=== PATIENT | female | born 1990 | race Caucasian/White ===

== ENCOUNTER 2016-08-13 05:08 | Emergency (ER) | payer OTHER ==
[2016-08-13 05:29] VITALS: BMI 23.8
--- NOTE | 2016-08-13 05:53 | PDOC ---
[id number] SORE THROAT, HEADACHE Time Seen by Provider: 08/13/16 05:26 History Source: Patient Exam Limitations: No Limitations - History of Present Illness Initial Comments: 08/13/16 05:52 26yo Female patient presents to ED c/o sweating, chills, coughing, subjective fever, h/a, generalized malaise x 2 days. LNMP: 7 months ago (IUD). Pmhx: Fibromyalgia. Denies any other complaints at this time. Timing/Duration: other (2 days) Severity: moderate Modifying Factors: improves with: rest Associated Symptoms: reports: headaches. denies: chest pain, cough, diaphoresis , fever/chills, loss of appetite, nausea/vomiting, rash, seizure, shortness of breath, weakness Past History - Travel Traveled outside of the country in the last 30 days: No Close contact w/someone who was outside of country & ill: No - Past Medical History Allergies/Adverse Reactions: Allergies Allergy/AdvReac Type Severity Reaction Status Date / Time [place] And Derivatives Allergy Verified 08/13/16 05:29 No Known Drug Allergies Allergy Verified 08/13/16 06:27 Home Medications: Ambulatory Orders Oseltamivir Phosphate [Tamiflu] 75 mg PO BID #10 capsule 08/13/16 Amoxicillin - [Amoxicillin 500mg Capsule -] 1,000 mg PO DAILY #20 capsule Disorders: Yes (ovarian cysts) Kidney Stones: Yes Other medical history: fibromyalgia - Psycho/Social/Smoking Cessation Hx Anxiety: No Suicidal Ideation: No Smoking Status: Yes Smoking History: Current every day smoker Number of Cigarettes Smoked Daily: 20 Information on smoking cessation initiated: No 'Breaking Loose' booklet given: 03/19/15 Hx Alcohol Use: No Drug/Substance Use Hx: No Substance Use Type: None Review of Systems - Review of Systems Able to Perform ROS?: Yes Is the patient limited [place]ian proficient: No Constitutional: Yes: Chills, Fever (Subjective), Malaise. No: Night Sweats Respiratory: No: Cough, Orthopnea, Shortness of Breath, Stridor Cardiac (ROS): No: Chest Pain, Palpitations, Syncope, Chest Tightness ABD/GI: Yes: Other (Abd pain to RLQ/Epigastric region). No: Constipated, Diarrhea, Nausea, Poor Appetite, Poor Fluid Intake, Vomiting : No: Burning, Dysuria, Discharge, Frequency, Flank Pain, Pain, Urgency Musculoskeletal: Yes: Back Pain. No: Muscle Weakness Integumentary: No: Bruising, Erythema, Rash Neurological: Yes: Headache. No: Numbness, Paresthesia, Seizure, Tingling, Tremors, Weakness, Unsteady Gait, Ataxia *Physical Exam - Vital Signs Last Vital Signs Temp Pulse Resp BP Pulse Ox 98.9 F 106 H 18 102/72 100 08/13/16 05:28 08/13/16 05:28 08/13/16 05:28 08/13/16 05:08/13/16 05:28 - Physical Exam General Appearance: Yes: Nourished, Appropriately Dressed. No: Apparent Distress, Mild Distress, Moderate Distress, Severe Distress HEENT: positive: EOMI, LILA, Normal ENT Inspection, Normal Voice, Symmetrical, Pharynx Normal. negative: Tonsillar Exudate, Nasal Congestion, Rhinorrhea, Sinus Tenderness Neck: positive: Trachea midline, Supple. negative: Decreased range of motion, Stridor, Lymphadenopathy (R), Lymphadenopathy (L) Respiratory/Chest: positive: Lungs Clear, Normal Breath Sounds. negative: Respiratory Distress, Accessory Muscle Use, Labored Respiration, Rapid RR, Decreased Breath Sounds, Stridor, Wheezing Cardiovascular: positive: Regular Rhythm, Regular Rate Gastrointestinal/Abdominal: positive: Normal Bowel Sounds, Soft. negative: Increased Bowel Sounds, Guarding, Rebound Musculoskeletal: positive: Normal Inspection. negative: CVA Tenderness Extremity: positive: Normal Capillary Refill, Normal Inspection, Normal Range of Motion, Tender, Pelvis Stable Integumentary: positive: Normal Color, Dry, Warm Neurologic: positive: outreach associate II-XII NML intact, Fully Oriented, Alert, Normal Mood/ Affect, Motor Strength 5/5 ED Treatment Course - RADIOLOGY Radiology Studies Ordered: Category Date Time Status CHEST PA & LAT [RAD] Stat Radiology 08/13/16 05:49 Ordered *DC/Admit/Observation/Transfer Diagnosis at time of Disposition: Influenza - Discharge Dispostion Disposition: HOME Condition at time of disposition: Stable Admit: No - Prescriptions Prescriptions: Amoxicillin - [Amoxicillin 500mg Capsule -] 1,000 mg PO DAILY #20 capsule Oseltamivir Phosphate [Tamiflu] 75 mg PO BID #10 capsule - Referrals Referrals: Ortega Llanos [Primary Care Provider] - - Patient Instructions Printed Discharge Instructions: Influenza Additional Instructions: Take medication as directed Print Language: MOHAWK
--- NOTE | 2016-08-13 07:22 | PDOC ---
History of Present Illness - General Chief Complaint: Sore Throat Stated Complaint: SORE THROAT, HEADACHE Time Seen by Provider: 08/13/16 05:26 History Source: Patient - History of Present Illness Timing/Duration: other Associated Symptoms: reports: cough, fever/chills, malaise Past History - Past Medical History Allergies/Adverse Reactions: Allergies Allergy/AdvReac Type Severity Reaction Status Date / Time [place] And Derivatives Allergy Verified 08/13/16 05:29 No Known Drug Allergies Allergy Verified 08/13/16 06:27 Home Medications: Ambulatory Orders Oseltamivir Phosphate [Tamiflu] 75 mg PO BID #10 capsule 08/13/16 Disorders: Yes (ovarian cysts) Kidney Stones: Yes Other medical history: fibromyalgia - Psycho/Social/Smoking Cessation Hx Anxiety: No Suicidal Ideation: No Smoking Status: Yes Smoking History: Current every day smoker Number of Cigarettes Smoked Daily: 20 Information on smoking cessation initiated: No 'Breaking Loose' booklet given: 03/19/15 Hx Alcohol Use: No Drug/Substance Use Hx: No Substance Use Type: None Review of Systems - Review of Systems Is the patient limited Armenian proficient: No *Physical Exam - Vital Signs Last Vital Signs Temp Pulse Resp BP Pulse Ox 98.9 F 106 H 18 102/72 100 08/13/16 05:28 08/13/16 05:28 08/13/16 05:28 08/13/16 05:28 08/13/16 05:28 ED Treatment Course - ADDITIONAL ORDERS Additional order review: Laboratory Results 08/13/16 06:15 Urine HCG, Qual Negative 08/13/16 06:00 Influenza Types A,B Antigen (ZURI) - Final Nasopharyngeal Swab - Final 08/13/16 06:15 Group A Strep Rapid Antigen - Final Throat Medical Decision Making - Medical Decision Making 08/13/16 07:20 26-year-old female, no significant history, here with viral syndrome. Tested positive for influenza. Negative strep. Pending x-ray and then plan for discharge with Tamiflu as per prior team 08/13/16 07:44 XR neg. Pt stable for discharge at this time *DC/Admit/Observation/Transfer Diagnosis at time of Disposition: Influenza - Discharge Dispostion Disposition: HOME Condition at time of disposition: Stable - Prescriptions Prescriptions: Oseltamivir Phosphate [Tamiflu] 75 mg PO BID #10 capsule - Referrals Referrals: Ortega Llanos [Primary Care Provider] - - Patient Instructions Printed Discharge Instructions: Influenza Additional Instructions: Take medication as directed
[2016-08-13 07:52] LABS: URINE APPEARANCE CLEAR; URINE BILIRUBIN NEGATIVE (NEGATIVE); URINE BLOOD NEGATIVE (NEGATIVE); URINE COLOR LTYELLOW; URINE GLUCOSE (UA) NEGATIVE (NEGATIVE); URINE KETONE 2+ (NEGATIVE); URINE LEUK ESTERASE NEGATIVE (NEGATIVE); URINE NITRITE NEGATIVE (NEGATIVE); URINE PROTEIN NEGATIVE (NEGATIVE); URINE UROBILINOGEN NEGATIVE E.U./dl (0.2-1.0)
[2016-08-13 08:52] VITALS: BP 110/82; PULSE 92; TEMP 99
--- NOTE | 2016-08-15 12:25 | PDOC ---
Patient Follow-up (Call Back) - Post ED Follow - Up Chief Complaint: Respiratory Condition at time of discharge: Stable Disposition at time of original discharge: HOME Reason for Call Back: Abnwl. Microbiology (throat culture positive for strep A) - Disposition Rx Needed: Yes Additional Instructions/Notes: spoke with patient and will call in prescription for amoxicillin to [facility].
== END 2016-08-13 08:30 | disposition home or self-care (01) ==
LOC: JER 05:08
DX: J09.X2 Influenza due to identified novel influenza A virus with other respiratory manifestations (principal); F17.210 Nicotine dependence, cigarettes, uncomplicated
CPT/HCPCS: 71020-TC; 81003; 84703; 87070; 87077; 87430; 87804; 99282-25

== ENCOUNTER 2017-06-29 09:19 | Emergency (ER) | payer OTHER ==
[2017-06-29 09:33] VITALS: BP 133/83; PULSE 114; TEMP 98; BMI 23.8
[2017-06-29] MEDS ORDERED: KETOROLAC TROMETHAMINE 60 MG/2 ML VIAL IM ONE (10:26)
[2017-06-29] MEDS ORDERED: KETOROLAC TROMETHAMINE 60 MG/2 ML VIAL ONE (10:29)
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
== END 2017-06-29 11:32 | disposition home or self-care (01) ==
LOC: JERFT 09:19
PROC: 3E0233Z Introduction of Anti-inflammatory into Muscle, Percutaneous Approach (ICD-10-PCS; principal; 2017-06-29)
DX: M54.9 Dorsalgia, unspecified (principal); F17.210 Nicotine dependence, cigarettes, uncomplicated; V43.62XA Car passenger injured in collision with other type car in traffic accident, initial encounter; Y93.89 Activity, other specified; Y92.410 Unspecified street and highway as the place of occurrence of the external cause
CPT/HCPCS: 99281-25

== ENCOUNTER 2018-02-03 16:13 | Emergency (ER) | payer OTHER ==
--- NOTE | 2018-02-03 16:21 | PDOC ---
History of Present Illness - General Chief Complaint: Pain Stated Complaint: CHEST PAIN Time Seen by Provider: 02/03/18 16:15 - History of Present Illness Initial Comments: 02/03/18 16:19 27 year old w/ history of fibromyalgia who presents with chest pain rated 8/10 described as burning, "sitting on the chest" and "heaviness" unrelieved with ibuprofen ongoing for the past 3.5 weeks. She was evaluated for the same complaint at [facility] where she was diagnosed as having costochondritis and given Toradol and advised to return to the ED is symptoms persisted. She states that the pain is so bad that she is only able to wear a sports bra. The pain is worse with bending over and lifting heavy objects. She denies headache, nausea, vomiting, abdominal pain, chest palpitations and pain worsening when eating. She has no other complaints. 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 Past History - Past Medical History Allergies/Adverse Reactions: Allergies Allergy/AdvReac Type Severity Reaction Status Date / Time [place] And Derivatives Allergy Verified 02/03/18 16:16 No Known Drug Allergies Allergy Verified 02/03/18 16:16 Home Medications: Ambulatory Orders Amitriptyline HCl [Elavil -] 25 mg PO DAILY 06/29/17 Methocarbamol 500 mg PO HS 06/29/17 COPD: No Disorders: Yes (ovarian cysts) Kidney Stones: Yes - Suicide/Smoking/Psychosocial Hx Smoking Status: Yes Smoking History: Current every day smoker Have you smoked in the past 12 months: Yes Number of Cigarettes Smoked Daily: 7 'Breaking Loose' booklet given: 06/29/17 Hx Alcohol Use: No Drug/Substance Use Hx: Yes (mahamed) Substance Use Type: Marijuana Review of Systems - Review of Systems Able to Perform ROS?: Yes Is the patient limited Scottish proficient: No Constitutional: No: Chills, Diaphoresis, Fever HEENTM: No: Blurred Vision, Tinnitus Respiratory: No: Cough, Shortness of Breath Cardiac (ROS): Yes: Chest Pain ("heaviness"). No: Palpitations, Chest Tightness ABD/GI: No: Constipated, Diarrhea, Nausea, Vomiting Musculoskeletal: No: Back Pain, Muscle Pain, Muscle Weakness Neurological: No: Headache, Numbness, Tingling *Physical Exam - Physical Exam Comments: 02/03/18 16:26 GENERAL: Awake, alert, and fully oriented, in no acute distress HEAD: No signs of trauma, normocephalic, atraumatic EYES: PERRLA, EOMI, sclera anicteric, conjunctiva clear ENT: oropharynx clear without exudates. Moist mucosa NECK: Normal ROM, supple, no lymphadenopathy or masses LUNGS: No distress, speaks full sentences, clear to auscultation bilaterally, no dullness percussion, equal chest expansion CHEST: + tenderness to palpation on chest wall bilaterally, + tenderness to lower sternum on palpation HEART: Regular rate and rhythm, normal S1 and S2, no murmurs, rubs or gallops, peripheral pulses normal and equal bilaterally. ABDOMEN: Soft, nontender, normoactive bowel sounds. No guarding, no rebound. No masses EXTREMITIES : Normal inspection, Normal range of motion, no edema. No clubbing or cyanosis. NEUROLOGICAL: 5/5 strength on arm with tenderness, Normal speech, normal gait, no focal sensorimotor deficits SKIN: Warm, Dry, normal turgor, no rashes or lesions noted ED Treatment Course - LABORATORY CBC & Chemistry Diagram: 02/03/18 16:50 02/03/18 16:50 Medical Decision Making - Medical Decision Making 02/03/18 16:49 27 year old w/ history of fibromyalgia who presents with chest pain rated 8/10 described as burning, "sitting on the chest" and "heaviness" unrelieved with ibuprofen ongoing for the past 3.5 weeks. The patient is a smoker and therefore hypercoagulable, therefore consider evaluation for PE. Most likely the patient has costochondritis as the chest pain is reproducible on palpation and 85 percent of patients with fibromyalgia have tenderness over the second anterior costochondral junctions, making it a common site for musculoskeletal pain in the setting of fibromyalgia. - CTA to r/o PE - CBC, CMP, PT, PTT - Trop - EKG: normal sinus rhythm - WBC :12.6, CBC, CMP, unremarkable, Upreg negative - negative trop Patient stable for discharge, advised to f/u with PCP and bottle blower and given strict return precautions. *DC/Admit/Observation/Transfer Diagnosis at time of Disposition: Atypical chest pain - Discharge Dispostion Disposition: HOME Condition at time of disposition: Stable Decision to Admit order: No - Referrals Referrals: Hugo Hinson MD [Staff Physician] - Romie Gomez MD [Staff Physician] - - Patient Instructions Printed Discharge Instructions: DI for Atypical Chest Pain Additional Instructions: Advise patient to follow up with bottle blower and primary care physician in 1-2 weeks. Take pain medication as needed. Return to ED immediately if chest pain worsens, fever develops and severe SOB. - Post Discharge Activity
[2018-02-03 16:29] VITALS: BP 138/67; PULSE 65; TEMP 98.5; BMI 27.2
--- NOTE | 2018-02-03 17:07 | PDOC ---
Attending Attestation - HPI HPI: 02/03/18 17:09 27 year old female with history of fibromyalgia, cigarette smoking, Nexplanon implant, who returns to the ED for greater than 3 weeks of chest pain. She describes her chest pain as pressure like pain that is worse with deep inspiration. She was seen at [facility] ED over 1 week ago for the same complaint. She had an unremarkable EKG and was discharged home on Toradol and PO NSAIDs. Today she states her pain has not improved. She does not recall any trauma or injury. She denies fever or chills. She denies nausea, vomiting, or diaphoresis. She denies shortness of breath, palpations, or peripheral edema. She denies recent travel or long periods of immobilization. States her pain feels different from typical fibromyalgia pain. - Physicial Exam PE: 02/03/18 17:13 GENERAL: Awake, alert, and fully oriented, in no acute distress HEAD: No signs of trauma EYES: PERRLA, EOMI, sclera anicteric, conjunctiva clear ENT: Auricles normal inspection, hearing grossly normal, nares patent, oropharynx clear without exudates. Moist mucosa NECK: Normal ROM, supple, no lymphadenopathy, JVD, or masses LUNGS: Breath sounds equal, clear to auscultation bilaterally. No wheezes, and no crackles HEART: +Anterior chest wall tenderness to palpation. Regular rate and rhythm, normal S1 and S2, no murmurs, rubs or gallops ABDOMEN: Soft, nontender, normoactive bowel sounds. No guarding, no rebound. No masses EXTREMITIES: Normal range of motion, no edema. No clubbing or cyanosis. No cords, erythema, or tenderness NEUROLOGICAL: Cranial nerves II through XII grossly intact. Normal speech, normal gait SKIN: Warm, Dry, normal turgor, no rashes or lesions noted. - Medical Decision Making 02/03/18 17:13 Documentation prepared by Sofy Andujar, acting as medical claims analyst for Ramses Mills MD. <Sofy Andujar - Last Filed: 02/03/18 17:15> - Resident Resident Name: Fern Worthy - ED Attending Attestation I have performed the following: I have examined & evaluated the patient, The case was reviewed & discussed with the resident, I agree w/resident's findings & plan, Exceptions are as noted - Medical Decision Making 02/03/18 16:54 A portion of this note was written by my scribe, under my supervision. Vital Signs Temp Pulse Resp BP Pulse Ox 98.5 F 65 18 138/67 99 02/03/18 16:13 02/03/18 16:13 02/03/18 16:13 02/03/18 16:13 02/03/18 16:13 27 year old female with history of fibromyalgia presents with 1 month of anterior chest pain. The patient does not know what caused her pain. States that the pain is constant but worse with palpation. States deep breaths worsens pain. Denies recent illnesses, fevers, chills. Denies hemoptysis, recent travels, sick contacts. Reports a smoking history but denies family history of cardiac or PE hx. Pt has an implantable control in left arm. The patient had visited [facility] on 01/24. Had an ECG which was normal and given toradol. However, NSAIDS and toradol did not relieve her pain. States feels different from her fibromyalgia. The patient does have reproducible anterior chest wall pain. It does seem unusual that the pain lasted for about a month? Could this be related to her fibromyalgia? Either way, should investigate further for different etiologies such as PE, pleurisy, bony wall abnormalities, ACS. I agree with the residents plan to obtain labs including troponin and CTA of chest. 02/03/18 19:14 CBC, BMP 02/03/18 16:50 02/03/18 16:50 CMP Sodium 137 mmol/L (136-145) 02/03/18 16:50 Potassium 3.9 mmol/L (3.5-5.1) 02/03/18 16:50 Chloride 107 mmol/L (98-107) 02/03/18 16:50 Carbon Dioxide 26 mmol/L (22-28) 02/03/18 16:50 Anion Gap 4 (8-16) L 02/03/18 16:50 BUN 14 mg/dl (7-18) 02/03/18 16:50 Creatinine 0.7 mg/dl (0.6-1.3) 02/03/18 16:50 Creat Clearance w eGFR > 60 (>60) 02/03/18 16:50 Random Glucose 95 mg/dl (74-106) 02/03/18 16:50 Calcium 9.1 mg/dl (8.4-10.2) 02/03/18 16:50 Total Bilirubin 0.8 mg/dl (0.2-1.0) 02/03/18 16:50 AST 16 U/L (10-42) 02/03/18 16:50 ALT 14 U/L (10-40) 02/03/18 16:50 Alkaline Phosphatase 60 U/L (32-92) 02/03/18 16:50 Troponin I < 0.03 ng/ml (0.00-0.06) 02/03/18 16:50 Total Protein 6.8 g/dl (6.4-8.3) 02/03/18 16:50 Albumin 4.4 g/dl (3.5-5.0) 02/03/18 16:50 Chest CTA demonstrates no acute findings. At this time, it is unclear what the etiology of the chest pain is. It is reproducible and has components of musculoskeletal pain. However, given the persistence of pain, I will have the patient follow up with a head control clerk. I feel that the patient is safe for discharge and for outpatient management. Discharge diagnosis: atypical chest pain. <Ramses Mills - Last Filed: 02/03/18 19:16> Heart Score/ECG Review #1 ECG reviewed & interpreted by me at: 16:40 02/03/18 17:08 NSR 60, no std/renetta, normal axis, normal intervals, QTC 366 msec <Ramses Mills - Last Filed: 02/03/18 19:16>
[2018-02-03 17:20] LABS: BASO % 0.3 % (0-2.0); EOS % 0.5 % (0-4.5); HEMATOCRIT 43.3 % (32.4-45.2); HEMOGLOBIN 14.1 GM/dl (10.7-15.3); LYMPH % 27.3 % (8-40); MCH 26.4 pg (25.7-33.7); MCHC 32.5 g/dl (32.0-36.0); MEAN CELL VOLUME 81.4 fl (80-96); MEAN PLT VOLUME 7.4 fl (7.5-11.1); MONO % 5.4 % (3.8-10.2); NEUT % 66.5 % (42.8-82.8); PLATELET COUNT 339 K/MM3 (134-434); RBC 5.32 M/mm3 (3.60-5.2); RDW 12.2 % (11.6-15.6); WHITE BLOOD COUNT 12.6 K/mm3 (4.0-10.8)
[2018-02-03 17:24] LABS: ALBUMIN 4.4 g/dl (3.5-5.0); ALK PHOS 60 U/L (32-92); ANION GAP 4 (8-16); BILIRUBIN,TOTAL 0.8 mg/dl (0.2-1.0); BLOOD UREA NITROGEN 14 mg/dl (7-18); CALCIUM 9.1 mg/dl (8.4-10.2); CHLORIDE 107 mmol/L (98-107); CO2 26 mmol/L (22-28); CREATININE 0.7 mg/dl (0.6-1.3); GLUCOSE,RANDOM 95 mg/dl (74-106); POTASSIUM 3.9 mmol/L (3.5-5.1); SGOT/AST 16 U/L (10-42); SGPT/ALT 14 U/L (10-40); SODIUM 137 mmol/L (136-145); TOT PROT 6.8 g/dl (6.4-8.3)
[2018-02-03 17:26] LABS: ACTIVATED PTT 29.8 SECONDS (25.2-36.5)
[2018-02-03 17:30] LABS: INR 1.05 (0.82-1.09); PROTHROMBIN TIME (PATIENT) 11.7 SEC (10.2-13.0)
[2018-02-03] MEDS ORDERED: SODIUM CHLORIDE 1,000 ML IV SCH (17:30)
--- NOTE | 2018-02-04 08:37 | EKG ---
Test Reason : Blood Pressure : / mmHG Vent. Rate : 060 BPM Atrial Rate : 060 BPM P-R Int : 122 ms QRS Dur : 072 ms QT Int : 366 ms P-R-T Axes : 025 088 046 degrees QTc Int : 366 ms POOR DATA QUALITY, INTERPRETATION MAY BE ADVERSELY AFFECTED NORMAL SINUS RHYTHM NORMAL ECG WHEN COMPARED WITH ECG OF 24-JAN-2018 19:37, VENT. RATE HAS DECREASED BY 29 BPM T WAVE INVERSION NO LONGER EVIDENT IN INFERIOR LEADS QT HAS SHORTENED Confirmed by KAITY KENDRICK, JAY ([id number]) on 02/04/2018 8:36:46 AM Referred By: DR GUERRA Confirmed By:JAY BRICENO MD
== END 2018-02-03 19:43 | disposition home or self-care (01) ==
LOC: FER 16:13
PROC: 3E0337Z Introduction of Electrolytic and Water Balance Substance into Peripheral Vein, Percutaneous Approach (ICD-10-PCS; principal; 2018-02-03)
DX: R07.89 Other chest pain (principal); M79.7 Fibromyalgia; F17.210 Nicotine dependence, cigarettes, uncomplicated; Z97.5 Presence of (intrauterine) contraceptive device
CPT/HCPCS: 36415; 71275-TC; 80053; 84484; 84703; 85025; 85610; 85730; 93005; 99285-25; J7030

== ENCOUNTER 2021-08-11 20:10 | Emergency (ER) | payer OTHER ==
[2021-08-11 20:27] VITALS: BP 119/84; PULSE 84; TEMP 98.1; BMI 25.2
[2021-08-11] MEDS ORDERED: ACETAMINOPHEN 325 MG TABLET (FP) PO ONE (20:29)
[2021-08-11] MEDS ORDERED: SODIUM CHLORIDE 0.9% 1000 ML INFUS.BAG IV ONE (20:29)
[2021-08-11] MEDS ORDERED: ACETAMINOPHEN 325 MG TABLET (FP) ONE (20:45)
[2021-08-11 21:04] LABS: ALBUMIN 4.6 g/dl (3.4-5.0); BILIRUBIN,TOTAL 0.8 mg/dl (0.2-1); CALCIUM 9.4 mg/dl (8.5-10); CREATININE 0.6 mg/dl (0.55-1.3); TOT PROT 7.1 g/dl (6.4-8.2)
[2021-08-11 21:35] LABS: BASO % 0.3 % (0-2.0); EOS % 0.4 % (0-4.5); HEMATOCRIT 37.6 % (32.4-45.2); HEMOGLOBIN 12.4 GM/dL (10.7-15.3); LYMPH % 32.7 % (8-40); MCH 26.7 pg (25.7-33.7); MCHC 32.8 g/dl (32.0-36.0); MEAN CELL VOLUME 81.4 fl (80-96); MEAN PLT VOLUME 7.2 fl (7.5-11.1); MONO % 7.6 % (3.8-10.2); PLATELET COUNT 331 10^3/uL (134-434); RBC 4.62 M/mm3 (3.60-5.2); RDW 12.9 % (11.6-15.6); WHITE BLOOD COUNT 8.6 K/mm3 (4.0-10.0)
== END 2021-08-11 23:22 | disposition home or self-care (01) ==
LOC: FER 20:10
DX: R10.9 Unspecified abdominal pain (principal)
CPT/HCPCS: 36415; 74177-TC; 80053; 81003; 81025; 85025; 87086; 99285-25; Q9967

== ENCOUNTER 2022-01-22 20:16 | Observation (INO) | payer OTHER ==
[2022-01-22] MEDS ORDERED: LACTATED RINGERS SOLUTION 1,000 ML/1,000 ML INFUS.BAG IV STA (23:26)
[2022-01-22] MEDS ORDERED: FAMOTIDINE 20 MG/50 ML IVPB 20 MG/50 ML MG IVPB ONE (23:26)
[2022-01-22] MEDS ORDERED: MAG HYDROX/AL HYDROX/SIMETH 30 ML UNIT-DOSE CUP PO ONE (23:26)
[2022-01-22] MEDS ORDERED: ACETAMINOPHEN 1000 MG/100 ML BAG IVPB ONE (23:26)
[2022-01-22] MEDS ORDERED: ONDANSETRON 4 MG/2 ML VIAL IVPUSH ONE (23:28)
[2022-01-22] MEDS ORDERED: MAG HYDROX/AL HYDROX/SIMETH 30 ML UNIT-DOSE CUP ONE (23:33)
[2022-01-22] MEDS ORDERED: ACETAMINOPHEN INJECTION 100 ML IVPB ONE (23:33)
[2022-01-22] MEDS ORDERED: ONDANSETRON 4 MG/2 ML VIAL ONE (23:33)
[2022-01-22] MEDS ORDERED: HALOPERIDOL DECANOATE 100 MG/ML IM ONE (23:40)
[2022-01-23] MEDS ORDERED: FAMOTIDINE 20 MG/50 ML IVPB 20 MG/50 ML MG IVPB ONE (00:15)
[2022-01-23] MEDS ORDERED: HALOPERIDOL LACTATE 5 MG/ML ONE (00:15)
[2022-01-23 00:31] LABS: URINE APPEARANCE CLEAR; URINE BILIRUBIN NEGATIVE (NEGATIVE); URINE COLOR YELLOW; URINE GLUCOSE (UA) NEGATIVE (NEGATIVE); URINE KETONE 3+ (NEGATIVE); URINE LEUK ESTERASE NEGATIVE (NEGATIVE); URINE NITRITE NEGATIVE (NEGATIVE); URINE PROTEIN NEGATIVE (NEGATIVE)
[2022-01-23 00:48] LABS: BASO % 0.3 % (0-2.0); EOS % 0.3 % (0-4.5); HEMATOCRIT 37.5 % (32.4-45.2); HEMOGLOBIN 12.5 GM/dL (10.7-15.3); LYMPH % 30.6 % (8-40); MCH 26.9 pg (25.7-33.7); MCHC 33.4 g/dl (32.0-36.0); MEAN CELL VOLUME 80.5 fl (80-96); MEAN PLT VOLUME 7.1 fl (7.5-11.1); MONO % 8.7 % (3.8-10.2); NEUT % 60.1 % (42.8-82.8); PLATELET COUNT 328 10^3/uL (134-434); RBC 4.66 M/mm3 (3.60-5.2); RDW 12.6 % (11.6-15.6); WHITE BLOOD COUNT 8.7 K/mm3 (4.0-10.0)
[2022-01-23 01:15] LABS: CHLORIDE 106 mmol/L (98-107); SODIUM 139 mmol/L (136-145)
[2022-01-23 01:19] LABS: CALCIUM 9.1 mg/dL (8.5-10.1)
[2022-01-23 01:20] LABS: ALBUMIN 4.1 g/dl (3.4-5.0); ANION GAP 8 MMOL/L (8-16); CO2 25 mmol/L (21-32); GLUCOSE,RANDOM 109 mg/dL (74-106)
[2022-01-23 01:21] LABS: LIPASE 57 U/L (73-393)
[2022-01-23 01:23] LABS: CREATININE 0.5 mg/dL (0.55-1.3); SGOT/AST 29 U/L (15-37); SGPT/ALT 25 U/L (13-61)
[2022-01-23 01:25] LABS: BILIRUBIN,TOTAL 0.9 mg/dL (0.2-1)
[2022-01-23 01:26] LABS: ALK PHOS 63 U/L (45-117)
[2022-01-23 01:50] LABS: BLOOD UREA NITROGEN 2.7 mg/dL (7-18)
[2022-01-23] MEDS ORDERED: POLYETHYLENE GLYCOL (HEALTHYLAX) 3350 17 GM PACKET PO PRN (03:31)
[2022-01-23] MEDS ORDERED: ACETAMINOPHEN 325 MG TABLET (FP) PO PRN (03:31)
[2022-01-23] MEDS ORDERED: LORazepam 2 MG/ML SDV VIAL IVPUSH ONE (03:49)
[2022-01-23] MEDS ORDERED: HYOSCYAMINE SULFATE 0.125 MG *ODT PO PRN (06:02)
[2022-01-23] MEDS ORDERED: MAG HYDROX/AL HYDROX/SIMETH 30 ML UNIT-DOSE CUP PO PRN (06:05)
[2022-01-23 08:46] VITALS: BMI 24.6
[2022-01-23] MEDS: ONDANSETRON 4 MG/2 ML VIAL IVPUSH PRN ×3 (09:03→20:31)
[2022-01-23] MEDS ORDERED: PANTOPRAZOLE 40 MG TABLET PO SCH (10:00)
[2022-01-23] MEDS ORDERED: OXYBUTYNIN CHLORIDE 5 MG TABLET PO SCH (10:00)
[2022-01-23] MEDS: SERTRALINE HCL 25 MG TABLET (FP) PO SCH (11:15)
[2022-01-23] MEDS: DEXTROSE 5%-0.45% SALINE 1,000 ML IV SCH (15:44)
[2022-01-23 19:00] LABS: METHADONE, UR NEGATIVE (NEGATIVE); URINE BENZODIAZEPINES NEGATIVE (NEGATIVE)
[2022-01-23 19:01] LABS: OPIATES, URI NEGATIVE (NEGATIVE); PHENCYCLIDINE,URINE NEGATIVE (NEGATIVE)
[2022-01-23 19:25] LABS: COCAINE, UR NEGATIVE (NEGATIVE); URINE AMPHETAMINES NEGATIVE (NEGATIVE); URINE BARBITURATES NEGATIVE (NEGATIVE)
[2022-01-24] MEDS: DEXTROSE 5%-0.45% SALINE 1,000 ML IV SCH ×2 (03:06→14:58)
[2022-01-24] MEDS: ONDANSETRON 4 MG/2 ML VIAL IVPUSH PRN (05:45)
[2022-01-24] MEDS: SERTRALINE HCL 25 MG TABLET (FP) PO SCH (09:52)
[2022-01-24 11:32] LABS: BASO % 0.3 % (0-2.0); EOS % 0.7 % (0-4.5); HEMATOCRIT 37.1 % (32.4-45.2); HEMOGLOBIN 12.1 GM/dL (10.7-15.3); LYMPH % 22.2 % (8-40); MCH 26.3 pg (25.7-33.7); MCHC 32.6 g/dl (32.0-36.0); MEAN CELL VOLUME 80.6 fl (80-96); MEAN PLT VOLUME 7.4 fl (7.5-11.1); MONO % 6.7 % (3.8-10.2); NEUT % 70.1 % (42.8-82.8); PLATELET COUNT 338 10^3/uL (134-434); RDW 12.6 % (11.6-15.6); WHITE BLOOD COUNT 7.7 K/mm3 (4.0-10.0)
[2022-01-24] MEDS ORDERED: diphenhydrAMINE HCL 25 MG CAPSULE (FP) PO PRN (12:06)
[2022-01-24] MEDS ORDERED: ONDANSETRON 4 MG TABLET PO SCH (12:15)
[2022-01-24 12:34] LABS: CALCIUM 8.6 mg/dL (8.5-10.1); MAGNESIUM 2.3 mg/dL (1.8-2.4)
[2022-01-24 12:37] LABS: CREATININE 0.5 mg/dL (0.55-1.3)
[2022-01-24 12:38] LABS: PHOSPHOROUS 3.4 mg/dL (2.5-4.9)
[2022-01-24] MEDS: SOLIFENACIN SUCCINATE 5 MG TAB PO SCH (13:25)
[2022-01-24] MEDS: LORazepam 1 MG TABLET PO PRN ×2 (14:00→22:04)
[2022-01-24] MEDS ORDERED: ONDANSETRON 8 MG TABLET (FP) PO PRN (15:44)
[2022-01-25] MEDS: DEXTROSE 5%-0.45% SALINE 1,000 ML IV SCH (03:13)
[2022-01-25] MEDS ORDERED: ONDANSETRON 4 MG TABLET PO ONE (08:48)
[2022-01-25] MEDS ORDERED: PROCHLORPERAZINE MALEATE 5 MG TABLET PO PRN (09:24)
[2022-01-25] MEDS ORDERED: PANTOPRAZOLE 40 MG TABLET PO SCH (10:00)
[2022-01-25] MEDS: SOLIFENACIN SUCCINATE 5 MG TAB PO SCH (10:36)
[2022-01-25] MEDS: SERTRALINE HCL 25 MG TABLET (FP) PO SCH (10:36)
[2022-01-25 10:55] LABS: HEMATOCRIT 39.7 % (32.4-45.2); MCH 26.4 pg (25.7-33.7); MCHC 32.6 g/dl (32.0-36.0); MEAN CELL VOLUME 80.9 fl (80-96); PLATELET COUNT 355 10^3/uL (134-434); RDW 12.7 % (11.6-15.6); WHITE BLOOD COUNT 8.9 K/mm3 (4.0-10.0)
[2022-01-25 11:12] LABS: CHLORIDE 103 mmol/L (98-107); SODIUM 140 mmol/L (136-145)
[2022-01-25 11:18] LABS: ALBUMIN 4.2 g/dl (3.4-5.0); ANION GAP 8 MMOL/L (8-16); CALCIUM 9.2 mg/dL (8.5-10.1); CO2 28 mmol/L (21-32); GLUCOSE,RANDOM 114 mg/dL (74-106); MAGNESIUM 2.3 mg/dL (1.8-2.4)
[2022-01-25 11:19] LABS: PHOSPHOROUS 3.4 mg/dL (2.5-4.9)
[2022-01-25 11:20] LABS: CREATININE 0.6 mg/dL (0.55-1.3)
[2022-01-25 11:21] LABS: SGOT/AST 14 U/L (15-37); SGPT/ALT 28 U/L (13-61)
[2022-01-25 11:22] LABS: ALK PHOS 63 U/L (45-117); BILIRUBIN,TOTAL 0.5 mg/dL (0.2-1); TOT PROT 7.1 g/dl (6.4-8.2)
[2022-01-25 11:24] LABS: BLOOD UREA NITROGEN 2.2 mg/dL (7-18)
[2022-01-25 14:13] VITALS: BP 133/64; PULSE 84; TEMP 98.6
== END 2022-01-25 12:45 | disposition home or self-care (01) ==
LOC: JER 20:16 → JERBED 01-23 03:30 → INTOOBSV 01-23 03:30 → J5S 01-23 06:45
PROVIDERS: ADMIT Hospitalist; ATTEND Internal Medicine
PROC: 3E033NZ Introduction of Analgesics, Hypnotics, Sedatives into Peripheral Vein, Percutaneous Approach (ICD-10-PCS; principal; 2022-01-23)
PROC: 3E0337Z Introduction of Electrolytic and Water Balance Substance into Peripheral Vein, Percutaneous Approach (ICD-10-PCS; 2022-01-23)
PROC: 3E033GC Introduction of Other Therapeutic Substance into Peripheral Vein, Percutaneous Approach (ICD-10-PCS; 2022-01-23)
PROC: 3E023NZ Introduction of Analgesics, Hypnotics, Sedatives into Muscle, Percutaneous Approach (ICD-10-PCS; 2022-01-23)
DX: F12.10 Cannabis abuse, uncomplicated (principal); M79.7 Fibromyalgia; K21.9 Gastro-esophageal reflux disease without esophagitis; F41.9 Anxiety disorder, unspecified; N73.9 Female pelvic inflammatory disease, unspecified; R11.2 Nausea with vomiting, unspecified; N32.81 Overactive bladder; F17.210 Nicotine dependence, cigarettes, uncomplicated; Z91.018 Allergy to other foods
CPT/HCPCS: 36415; 80048; 80053; 80307; 81003; 83690; 83735; 84100; 84703; 85025; 85027; 86140; 87086; 93005; 93010; 96361; 96367; 96372; 96374; 96375; 96376; 99285-25; C9803-CS; G0378; U0003; U0005

== ENCOUNTER 2022-03-28 16:15 | Observation (INO) | payer OTHER ==
[2022-03-28] MEDS ORDERED: FAMOTIDINE 20 MG/50 ML IVPB 20 MG/50 ML MG IVPB ONE ×2 (17:01→17:17)
[2022-03-28] MEDS ORDERED: SODIUM CHLORIDE 1,000 ML IV STA (17:01)
[2022-03-28] MEDS ORDERED: ONDANSETRON 4 MG/2 ML VIAL IVPUSH ONE (17:01)
[2022-03-28] MEDS ORDERED: ONDANSETRON 4 MG/2 ML VIAL ONE (17:17)
[2022-03-28 17:28] LABS: HEMATOCRIT 38.7 % (32.4-45.2); HEMOGLOBIN 13.7 G/dL (10.7-15.3); MCH 28.8 pg (25.7-33.7); MCHC 35.5 g/dl (32.0-36.0); MEAN CELL VOLUME 81.2 fl (80-96); MEAN PLT VOLUME 7.2 fl (7.5-11.1); PLATELET COUNT 296.2 10^3/uL (134-434); RBC 4.77 10^6/uL (3.60-5.2); RDW 14.5 % (11.6-15.6); WHITE BLOOD COUNT 6.7 10^3/uL (4.0-10.8)
[2022-03-28 17:46] LABS: ALBUMIN 4.2 g/dl (3.4-5.0); ALK PHOS 48 U/L (45-117); ANION GAP 15 MMOL/L (8-16); BILIRUBIN,TOTAL 0.8 mg/dl (0.2-1); CALCIUM 9.5 mg/dl (8.5-10); CHLORIDE 100 mmol/L (98-107); CO2 21 mmol/L (21-32); CREATININE 0.5 mg/dl (0.55-1.3); GLUCOSE,RANDOM 105 mg/dl (74-106); SGOT/AST 13 U/L (15-37); SGPT/ALT 9 U/L (13-61); SODIUM 136 mmol/L (136-145); TOT PROT 6.4 g/dl (6.4-8.2)
[2022-03-28 18:10] LABS: PLATELET ESTIMATE ADEQUATE
[2022-03-28] MEDS ORDERED: PANTOPRAZOLE SODIUM 40 MG VIAL IVPUSH ONE (18:16)
[2022-03-28] MEDS ORDERED: PANTOPRAZOLE SODIUM 40 MG VIAL ONE (18:18)
[2022-03-28] MEDS ORDERED: LORazepam 2 MG/ML SDV VIAL IVPUSH ONE (18:21)
[2022-03-28 18:40] LABS: LIPASE 70 U/L (73-393)
[2022-03-28] MEDS ORDERED: LORazepam 2 MG/ML SDV VIAL IVPUSH PRN (20:21)
[2022-03-28] MEDS ORDERED: MAG HYDROX/AL HYDROX/SIMETH 30 ML UNIT-DOSE CUP PO PRN (20:25)
[2022-03-28] MEDS ORDERED: METOCLOPRAMIDE HCL INJECTION 10 MG/2 ML VIAL IVPUSH PRN (20:25)
[2022-03-28] MEDS ORDERED: LACTATED RINGERS SOLUTION 1000 ML INFUS.BAG IV ONE (20:26)
[2022-03-28 20:41] LABS: MAGNESIUM 2.1 mg/dL (1.8-2.4); PHOSPHOROUS 3.1 mg/dl (2.5-4.9)
[2022-03-28 20:50] LABS: CHOLESTEROL 219 mg/dl (50-200); HDL CHOLESTEROL 49 mg/dl (40-60); LDL CHOLESTEROL (ONLY SJRH) 155 mg/dL (5-100); TRIGLYCERIDES 76 mg/dl (0-150)
[2022-03-28] MEDS ORDERED: KETOROLAC TROMETHAMINE 30 MG/1 ML VIAL IVPUSH PRN (20:55)
[2022-03-28] MEDS ORDERED: KETOROLAC TROMETHAMINE 15 MG/ML VIAL ONE (21:02)
[2022-03-28] MEDS ORDERED: ACETAMINOPHEN INJECTION 100 ML IVPB ONE (21:02)
[2022-03-28] MEDS: KETOROLAC TROMETHAMINE 15 MG/ML VIAL IVPUSH PRN (21:09)
[2022-03-28] MEDS: ACETAMINOPHEN 1000 MG/100 ML BAG IVPB PRN (21:10)
[2022-03-28] MEDS: LORazepam 2 MG/ML SDV VIAL IVPUSH PRN (22:24)
[2022-03-28] MEDS ORDERED: OXYBUTYNIN CHLORIDE 5 MG TABLET PO ONE (22:33)
[2022-03-29 04:12] VITALS: BMI 22.6
[2022-03-29] MEDS: ACETAMINOPHEN 1000 MG/100 ML BAG IVPB PRN ×3 (07:29→20:07)
[2022-03-29] MEDS: LORazepam 2 MG/ML SDV VIAL IVPUSH PRN ×3 (07:44→20:04)
[2022-03-29 08:31] LABS: HEMATOCRIT 35.3 % (32.4-45.2); HEMOGLOBIN 12.2 G/dL (10.7-15.3); MCH 28.3 pg (25.7-33.7); MCHC 34.5 g/dl (32.0-36.0); MEAN CELL VOLUME 82.1 fl (80-96); MEAN PLT VOLUME 7.4 fl (7.5-11.1); PLATELET COUNT 292.1 10^3/uL (134-434); WHITE BLOOD COUNT 5.5 10^3/uL (4.0-10.8)
[2022-03-29 08:37] LABS: ALBUMIN 3.6 g/dl (3.4-5.0); BILIRUBIN,TOTAL 1.1 mg/dl (0.2-1); CALCIUM 8.5 mg/dl (8.5-10); CREATININE 0.6 mg/dl (0.55-1.3); MAGNESIUM 1.9 mg/dL (1.8-2.4); PHOSPHOROUS 3.9 mg/dl (2.5-4.9); TOT PROT 5.7 g/dl (6.4-8.2)
[2022-03-29] MEDS: KETOROLAC TROMETHAMINE 15 MG/ML VIAL IVPUSH PRN ×2 (13:57→21:39)
[2022-03-29 14:06] LABS: COCAINE, UR NEGATIVE (NEGATIVE); METHADONE, UR NEGATIVE (NEGATIVE); OPIATES, URI POSITIVE (NEGATIVE); PHENCYCLIDINE,URINE NEGATIVE (NEGATIVE); URINE AMPHETAMINES NEGATIVE (NEGATIVE); URINE BARBITURATES NEGATIVE (NEGATIVE); URINE BENZODIAZEPINES POSITIVE (NEGATIVE)
[2022-03-29] MEDS: PANTOPRAZOLE SODIUM 40 MG VIAL IVPUSH SCH (14:19)
[2022-03-29] MEDS: ENOXAPARIN NA (PORCINE) 40 MG/0.4 ML DISP.SYRIN SQ SCH (14:20)
[2022-03-29 15:13] VITALS: RESP 18
[2022-03-29] MEDS ORDERED: OXYBUTYNIN CHLORIDE 5 MG TABLET PO ONE (20:00)
[2022-03-30] MEDS: LORazepam 2 MG/ML SDV VIAL IVPUSH PRN (06:35)
[2022-03-30 09:25] VITALS: PULSE 94
[2022-03-30] MEDS: ENOXAPARIN NA (PORCINE) 40 MG/0.4 ML DISP.SYRIN SQ SCH (09:31)
[2022-03-30] MEDS: PANTOPRAZOLE SODIUM 40 MG VIAL IVPUSH SCH (09:31)
[2022-03-30] MEDS: KETOROLAC TROMETHAMINE 15 MG/ML VIAL IVPUSH PRN (09:45)
[2022-03-30] MEDS ORDERED: busPIRone HCL 5 MG TABLET PO SCH ×2 (10:43→22:00)
[2022-03-30] MEDS ORDERED: OXYBUTYNIN CHLORIDE 5 MG TABLET PO SCH (10:45)
[2022-03-30 14:35] VITALS: BP 117/77; TEMP 98.7
[2022-03-30] MEDS ORDERED: MIRTAZAPINE 15 MG TABLET (FP) PO SCH (22:00)
== END 2022-03-30 14:43 | disposition home or self-care (01) ==
LOC: FER 16:15 → FM/S 19:15
PROC: 3E033NZ Introduction of Analgesics, Hypnotics, Sedatives into Peripheral Vein, Percutaneous Approach (ICD-10-PCS; principal; 2022-03-28)
PROC: 3E023GC Introduction of Other Therapeutic Substance into Muscle, Percutaneous Approach (ICD-10-PCS; 2022-03-28)
PROC: 3E033GC Introduction of Other Therapeutic Substance into Peripheral Vein, Percutaneous Approach (ICD-10-PCS; 2022-03-28)
PROC: 3E0337Z Introduction of Electrolytic and Water Balance Substance into Peripheral Vein, Percutaneous Approach (ICD-10-PCS; 2022-03-28)
PROC: 3E0333Z Introduction of Anti-inflammatory into Peripheral Vein, Percutaneous Approach (ICD-10-PCS; 2022-03-28)
DX: F41.9 Anxiety disorder, unspecified (principal); M79.7 Fibromyalgia; K21.9 Gastro-esophageal reflux disease without esophagitis; N94.0 Mittelschmerz; R11.2 Nausea with vomiting, unspecified; J11.1 Influenza due to unidentified influenza virus with other respiratory manifestations; F17.290 Nicotine dependence, other tobacco product, uncomplicated; Z91.018 Allergy to other foods
CPT/HCPCS: 36415; 71045-TC-FY; 74176-TC; 80053; 80061; 80307; 81003; 81015; 82550; 83690; 83735; 84100; 84439; 84443; 84484; 84703; 85027; 85379; 93005; 93306-TC; 93351; 96361; 96365; 96372; 96375; 96376; 99285-25; C9803-CS; G0378; U0003; U0005